=== PATIENT | female | born 1965 | race Caucasian/White ===

== ENCOUNTER → 2021-12-16 08:38 | Outpatient (BNVA) | payer MEDICARE, SELFPAY | PROVIDERS: PCP Internal Medicine; Visit Provider Hospitalist | DX: R91.8 Other nonspecific abnormal finding of lung field (principal); I71.9 Aortic aneurysm of unspecified site, without rupture; F17.210 Nicotine dependence, cigarettes, uncomplicated | CPT/HCPCS: 99202 ==

== ENCOUNTER 2021-12-17 15:13 | Outpatient (REF) | payer MEDICARE, SELFPAY ==
[2021-12-17 15:25] LABS: MANUAL DIFF FLAG NO
[2021-12-17 15:32] LABS: Basophils Absolute Auto 0.1 X10*3/uL (0.0-0.2); Basophils Percent Auto 1.2 % (0-2); Eosinophils Absolute Auto 0.1 X10*3/uL (0.0-0.4); Eosinophils Percent Auto 1.9 % (0-4); Hematocrit 40.2 % (37.0-47.0); Hemoglobin 13.9 g/dl (12.0-16.0); Imm Gran Abs Auto 0.01 X10*3/uL (0.00-0.03); Imm Gran Pct Auto 0.2 % (0.0-0.4); Lymphocytes Absolute Auto 2.3 X10*3/uL (1.2-4.9); Lymphocytes Percent Auto 34.7 % (20-40); Mean Corpuscular HGB Conc 34.6 g/dl (31.0-35.0); Mean Corpuscular Volume 89.5 fL (80.0-98.0); Monocytes Absolute Auto 0.5 X10*3/uL (0.1-1.2); Monocytes Percent Auto 6.9 % (2-11); Neutrophils Absolute Auto 3.6 x10*3/uL (2.0-8.3); Neutrophils Percent Auto 55.1 % (45-73); Platelet Count 228 X10*3/uL (160-400); Red Blood Count 4.49 X10*6/uL (4.20-5.50); Red Cell Distribution Width 12.2 % (11.0-16.0); White Blood Count 6.5 X10*3/uL (4.8-10.8)
[2021-12-17 16:00] LABS: Anion Gap 14 (12-20); Blood Urea Nitrogen 14 mg/dL (9-16); Calcium 9.8 mg/dL (8.4-10.2); Carbon Dioxide 27 mmol/L (22-29); Chloride 104 mmol/L (96-108); Estimated Glomerular Filt Rate > 60; Glucose Random 95 mg/dL (60-115); Potassium 4.2 mmol/L (3.3-5.1); Sodium 141 mmol/L (135-145)
[2021-12-17 16:12] LABS: Erythrocyte Sedimentation Rate 9 MM/HR (0-20)
== END 2021-12-17 15:14 | disposition home or self-care (01) ==
LOC: HO.LAB 15:13
PROVIDERS: Visit Provider Hospitalist
DX: I71.9 Aortic aneurysm of unspecified site, without rupture (principal)
CPT/HCPCS: 36415; 80048; 85025; 85652

== ENCOUNTER → 2022-01-25 08:32 | Outpatient (BNVA) | payer MEDICARE, SELFPAY | PROVIDERS: PCP Internal Medicine; Visit Provider Hospitalist | DX: R91.8 Other nonspecific abnormal finding of lung field (principal); I71.9 Aortic aneurysm of unspecified site, without rupture; F17.210 Nicotine dependence, cigarettes, uncomplicated | CPT/HCPCS: 99212 ==

== ENCOUNTER 2023-03-22 08:39 | Outpatient (AMB) | payer OTHER, SELFPAY ==
[2023-03-22 08:56] VITALS: PULSE 88; O2SAT 96; BMI 31.2
--- NOTE | 2023-03-22 08:56 | MHC.OFFVIS ---
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 She has been smoking for assessment significant part of her life. She has tried cutting down. She is considering switching over to a vaping since she is concerned about the risks of lung cancer by her smoking. The patient has had multiple CT scans and follow-up at [facility] previously evaluating her for a what appears to be in aortic aneurysm. Initially in 2019 her aneurysm was measuring 4.2 cm and then in 2020 it measured 4.3 cm. Now because her smoking she was referred to a different institution for a CT scan of the chest for lung cancer screening. It was noted she had multiple pulmonary nodules bilaterally 4 mm in size with the largest nodule. However, on that evaluation it appeared that here ascending aortic aneurysm was increasing size now measuring between 4.5-4.9 cm. However, all her CT scans have been done without contrast so therefore difficult to assess the actual aortic aneurysm. The patient denies any chest pains but she is concerned with her family history. In regards of her smoking I did speak to her about the Nicotrol inhaler. She is willing to try. She understands that vaping although maybe a different alternative way of getting nicotine and has lipid suspension and that can also irritate the lungs and cause other lung problems in the future. I will send a prescription for the Nicotrol inhaler to the pharmacy. She also has a rescue inhaler that she rarely uses. The patient has had any pulmonary function studies at this time. Will plan to have some done in the near future. Also to note her pulmonary nodules that were documented on her last CT scan from 2021 were not documented on her previous CT scan suggesting that there are new. 01/25/2022 the patient is here for a pulmonary follow-up visit. Overall the patient has been doing relatively well from a respiratory status. Her cough is better. She still struggling with smoking. She has not started the Nicotrol inhaler although she does have it at home. She is thinking about starting it. I did explain to her that if she does started she can start slowly just using it a few times today and then increasing as tolerated. Or as needed. She is also consider hypnosis which I believe will be a good option she does not want 1. Ultimately the patient has significant cardiovascular risk factors and pulmonary risk factors and therefore she has quit smoking for those reasons. The patient did have a CT with IV contrast to better assess her aorta which appears to be an ectatic aorta without any evidence of any aneurysms. She will continue following Cardiology closely for her ectatic ascending aorta. Her pulmonary nodules appear to be stable. She will need a CT scan in a year's time to follow-up with the pulmonary nodules. The patient does not use her rescue inhaler. She does have 1 available in case she does need it. She does have issues with her reflux. There is a suggestion of a hiatal hernia. I did offer the patient to undergo a barium swallow. She will consider that although she will follow-up with GI and see if she can schedule herself and endoscopy to better evaluate the esophagus. The the she will continue the reflux diet at this time. The patient come back in 1 years time to repeat the CT scan. 03/22/2023 the patient is here for a pulmonary follow-up visit. Since we last spoke she did have COVID over the fall. She did develop fevers and malacia. She did take Paxlovid. Denied any significant respiratory complaints. However, closer to [place] the patient developed RSV. She developed significant wheezing. She did require steroids in addition to a rescue inhaler often. Now she is back to her baseline. She is feeling that she is recovering well. She still has some coughing at times but minimal. The patient has quit smoking about a month. She is still using a vape intermittently for withdrawal symptoms. We did talk about alternatives such as the smoking cessation program here and also considering hypnosis. She is going to really consider that. We did look at her CT scan of the chest that she had in January 2023 at rest. It appears pulmonary nodules are stable and they aneurysms stable. Although, they do mention and I did appreciate that she has a small 1 cm ground-glass subsolid density in the lingula that appears to be increasing in size when compared to previous. Therefore, based on this I would rather get a CT scan sooner than usual for her. The patient still high risk because of her smoking. [facility] Medical History (Updated 03/22/23 @ 12:44 by Stuart Bartlett MD) Tobacco dependence Pulmonary nodules Social History Patient Tobacco Use Status: Current everyday Tobacco user Tobacco use type: Cigarette Cigarette Packs Per Day: 1 Cigarettes Per Day: 5 Years Smoked: 2 years Review of Systems Const Denies fever(s) Eyes Denies change in vision ENT Denies change in voice Card Denies chest pain Resp Reports cough and Denies wheezing GI Reports no additional complaints Musc Reports no additional complaints Skin/Breast Denies rash Neuro Reports no additional complaints Endo Denies flushing Temo/Lymph Denies easy bleeding, Denies easy bruising and Denies lymphadenopathy Aller/Immun Denies wheezing Physical Exam Vital Signs: Last Vital Signs Pulse 88 03/22/23 08:56 Pulse Ox 96 03/22/23 08:56 Oxygen Delivery Method Room Air 03/22/23 08:56 BMI result Body Mass Index 31.2 Const General: comfortable HEENT Head: Yes normal to inspection Eyes General: appearance normal, both eyes and all related structures Neck Neck: Yes supple Chest Chest palpation & inspection: normal inspection of the chest Resp Effort & Inspection: normal respiratory effort Auscultation: clear to auscultation bilaterally GI Auscultation: normal bowel sounds Skin General skin exam: no rashes or lesions noted Extrem General: Yes no clubbing, cyanosis or edema Results Reviewed Results Reviewed: Assessment & Plan Assessment & Plan (1) Pulmonary nodules: Comment: 1 cm subsolid nodular density in the Lingula Code(s): R91.8 - Other nonspecific abnormal finding of lung field (2) Tobacco dependence: Code(s): F17.200 - Nicotine dependence, unspecified, uncomplicated (3) Aortic aneurysm: Comment: 2021 CT with IV contrast-ectatic aorta (no aneurysm) noted Code(s): I71.9 - Aortic aneurysm of unspecified site, without rupture Qualifiers: Aortic location: unspecified Presence of rupture: without rupture Qualified Code(s): I71.9 - Aortic aneurysm of unspecified site, without rupture Plan Repeat CT chest 6-8 months Reflux diet MINNIE as needed Tobacco cessation: consider hypnosis F/U 6-8 months Orders: Orders CT chest wo IV con 10/18/23 R91.8 - Other nonspecific abnormal finding of lung field Coding Level of Care Code Est Pt Level 4 (91478) Diagnoses Pulmonary nodules R91.8 Tobacco dependence F17.200 Aortic aneurysm without rupture, unspecified portion of aorta I71.9 Aortic location: unspecified Presence of rupture: without rupture Time Spent (min) 20
== END 2023-03-22 09:20 | disposition home or self-care (01) ==
PROVIDERS: PCP Internal Medicine; Visit Provider Hospitalist
DX: R91.8 Other nonspecific abnormal finding of lung field (principal); F17.200 Nicotine dependence, unspecified, uncomplicated; I71.9 Aortic aneurysm of unspecified site, without rupture
CPT/HCPCS: 99214

== ENCOUNTER → 2023-03-22 08:39 | Outpatient (BNVA) | payer OTHER, SELFPAY | PROVIDERS: PCP Internal Medicine; Visit Provider Hospitalist ==

== ENCOUNTER 2024-01-11 10:06 | Outpatient (AMB) | payer BC, SELFPAY ==
--- NOTE | 2024-01-11 10:09 | A.OFFVIS_ITS ---
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 She has been smoking for assessment significant part of her life. She has tried cutting down. She is considering switching over to a vaping since she is concerned about the risks of lung cancer by her smoking. The patient has had multiple CT scans and follow-up at [facility] previously evaluating her for a what appears to be in aortic ane urysm. Initially in 2019 her aneurysm was measuring 4.2 cm and then in 2020 it measured 4.3 cm. Now because her smoking she was referred to a different institution for a CT scan of the chest for lung cancer screening. It was noted she had multiple pulmonary nodules bilaterally 4 mm in size with the largest nodule. However, on that evaluation it appeared that here ascending aortic aneurysm was increasing size now measuring between 4.5-4.9 cm. However, all her CT scans have been done without contrast so therefore difficult to assess the actual aortic aneurysm. The patient denies any chest pains but she is concerned with her family history. In regards of her smoking I did speak to her about the Nicotrol inhaler. She is willing to try. She understands that vaping although maybe a different alternative way of getting nicotine and has lipid suspension and that can also irritate the lungs and cause other lung problems in the future. I will send a prescription for the Nicotrol inhaler to the pharmacy. She also has a rescue inhaler that she rarely uses. The patient has had any pulmonary function studies at this time. Will plan to have some done in the near future. Also to note her pulmonary nodules that were documented on her last CT scan from 2021 were not documented on her previous CT scan suggesting that there are new. 01/25/2022 the patient is here for a pulmonary follow-up visit. Overall the patient has been doing relatively well from a respiratory status. Her cough is better. She still struggling with smoking. She has not started the Nicotrol inhaler although she does have it at home. She is thinking about starting it. I did explain to her that if she does started she can start slowly just using it a few times today and then increasing as tolerated. Or as needed. She is also consider hypnosis which I believe will be a good option she does not want 1. Ultimately the patient has significant cardiovascular risk factors and pulmonary risk factors and therefore she has quit smoking for those reasons. The patient did have a CT with IV contrast to better assess her aorta which appears to be an ectatic aorta without any evidence of any aneurysms. She will continue following Cardiology closely for her ectatic ascending aorta. Her pulmonary nodules appear to be stable. She will need a CT scan in a year's time to follow-up with the pulmonary nodules. The patient does not use her rescue inhaler. She does have 1 available in case she does need it. She does have issues with her reflux. There is a suggestion of a hiatal hernia. I did offer the patient to undergo a barium swallow. She will consider that although she will follow-up with GI and see if she can schedule herself and endoscopy to better evaluate the esophagus. The the she will continue the reflux diet at this time. The patient come back in 1 years time to repeat the CT scan. 03/22/2023 the patient is here for a pulmonary follow-up visit. Since we last spoke she did have COVID over the fall. She did develop fevers and malacia. She did take Paxlovid. Denied any significant respiratory complaints. However, closer to [place] the patient developed RSV. She developed significant wheezing. She did require steroids in addition to a rescue inhaler often. Now she is back to her baseline. She is feeling that she is recovering well. She still has some coughing at times but minimal. The patient has quit smoking about a month. She is still using a vape intermittently for withdrawal symptoms. We did talk about alternatives such as the smoking cessation program here and also considering hypnosis. She is going to really consider that. We did look at her CT scan of the chest that she had in January 2023 at rest. It appears pulmonary nodules are stable and they aneurysms stable. Although, they do mention and I did appreciate that she has a small 1 cm ground-glass subsolid density in the lingula that appears to be increasing in size when compared to previous. Therefore, based on this I would rather get a CT scan sooner than usual for her. The patient still high risk because of her smoking. 01/11/2024 the patient is here for a pulmonary follow-up visit. Overall she is doing okay. She is recovering from COVID. She has had a lingering cough after that. But otherwise she is feeling well. She stop smoking cigarettes. Although she has been vaping some. We talked about different alternative vaping mechanisms to filter the suspension a little bit better. She will look into it. We also did look at her CT scan of the chest that she had an November 2023. The dilated ascending aorta appears to be stable. In addition to that her pulmonary nodules appear to also be unchanged. Will continue to follow this longer specially since she has a subsolid component to her nodules. Therefore she will return in 03/19/2025 for plan to repeat her next CT scan. [facility] Medical History (Updated 03/22/23 @ 12:44 by Stuart Bartlett MD) Tobacco dependence Pulmonary nodules Social History (Updated 01/11/24 @ 10:19 by Milady Villa LPN) Patient Tobacco Use Status: Former Tobacco user Tobacco use type: Cigarette Cigarette Packs Per Day: 1 Cigarettes Per Day: 5 Years Smoked: 2 years Patient currently vapes. Review of Systems Const Denies fever(s) Eyes Denies change in vision ENT Denies change in voice Card Denies chest pain Resp Reports cough and Denies wheezing GI Reports no additional complaints Musc Reports no additional complaints Skin/Breast Denies rash Neuro Reports no additional complaints Endo Denies flushing Temo/Lymph Denies easy bleeding, Denies easy bruising and Denies lymphadenopathy Aller/Immun Denies wheezing Physical Exam Vital Signs: Last Vital Signs Pulse 72 01/11/24 10:12 BP 110/68 01/11/24 10:12 Pulse Ox 99 01/11/24 10:12 Oxygen Delivery Method Room Air 01/11/24 10:12 BMI result Body Mass Index 33.9 Const General: comfortable HEENT Head: Yes normal to inspection Eyes General: appearance normal, both eyes and all related structures Neck Neck: Yes supple Chest Chest palpation & inspection: normal inspection of the chest Resp Effort & Inspection: normal respiratory effort Auscultation: clear to auscultation bilaterally GI Auscultation: normal bowel sounds Skin General skin exam: no rashes or lesions noted Extrem General: Yes no clubbing, cyanosis or edema Assessment & Plan Assessment & Plan (1) Pulmonary nodules: Comment: 1 cm subsolid nodular density in the Lingula Code(s): R91.8 - Other nonspecific abnormal finding of lung field Category: Medical (2) Tobacco dependence: Code(s): F17.200 - Nicotine dependence, unspecified, uncomplicated Category: Medical (3) Aortic aneurysm: Comment: 2021 CT with IV contrast-ectatic aorta (no aneurysm) noted Code(s): I71.9 - Aortic aneurysm of unspecified site, without rupture Category: Medical Qualifiers: Aortic location: unspecified Presence of rupture: without rupture Qualified Code(s): I71.9 - Aortic aneurysm of unspecified site, without rupture Plan Repeat CT chest February 2025 Reflux diet MINNIE as needed Tobacco cessation: quit, using vaping F/U February 2025 Coding Level of Care Code Est Pt Level 4 (02807) Diagnoses Pulmonary nodules R91.8 Tobacco dependence F17.200 Aortic aneurysm without rupture, unspecified portion of aorta I71.9 Aortic location: unspecified Presence of rupture: without rupture Time Spent (min) 17
[2024-01-11 10:12] VITALS: BP 110/68; PULSE 72; O2SAT 99; BMI 33.9
== END 2024-01-11 10:45 | disposition home or self-care (01) ==
PROVIDERS: PCP Internal Medicine; Visit Provider Hospitalist
DX: R91.8 Other nonspecific abnormal finding of lung field (principal); F17.200 Nicotine dependence, unspecified, uncomplicated; I71.9 Aortic aneurysm of unspecified site, without rupture
CPT/HCPCS: 99214

== ENCOUNTER → 2024-01-11 10:06 | Outpatient (BNVA) | payer BC, SELFPAY | PROVIDERS: PCP Internal Medicine; Visit Provider Hospitalist ==